=== PATIENT | female | born 1955 | race Caucasian/White ===

== ENCOUNTER 2016-05-22 12:27 | Day surgery (SDC) | payer OTHER ==
[~2016-05-22] VITALS: Ht 152.4 cm; Wt 86.3 kg
[2016-05-22 13:44] VITALS: Ht 152.4 cm; Wt 86.3 kg
[2016-05-22] MEDS ORDERED: METFORMIN (13:56)
[2016-05-22] MEDS ORDERED: LOSARTAN (13:56)
[2016-05-22] MEDS ORDERED: SIMVASTATIN (13:56)
[2016-05-22] MEDS ORDERED: NORCO (13:56)
[2016-05-22] MEDS ORDERED: LANTUS (13:56)
[2016-05-22] MEDS ORDERED: JANUVIA (13:56)
[2016-05-22] MEDS ORDERED: ATIVAN (13:56)
[2016-05-22] MEDS ORDERED: SOMA (13:56)
[2016-05-22] MEDS ORDERED: ASPIRIN PO (13:56)
[2016-05-22] MEDS ORDERED: LATUDA (13:56)
[2016-05-22] MEDS ORDERED: LEVOTHYROXINE (13:56)
[2016-05-22] MEDS ORDERED: TRILEPTAL (13:56)
[2016-05-22 14:28] VITALS: BP 130/67; PULSE 70; RESP 18
[2016-05-22] MEDS ORDERED: PROPOFOL 60 ML ONE (15:32)
[2016-05-22] MEDS ORDERED: LIDOCAINE 2% (SDV) 5 ML INJ ONE (15:32)
[2016-05-22 16:08] VITALS: BP 132/72; PULSE 82; RESP 18
[2016-05-22 16:36] VITALS: BP 125/76; RESP 18
--- NOTE | 2016-05-22 18:36 | GILP ---
DATE OF PROCEDURE: NAME OF PROCEDURES: Colonoscopy and biopsy. SURGEON: Arturo Pak MD PREOPERATIVE DIAGNOSES: 1. Change in bowel habit. 2. Screening colonoscopy. POSTOPERATIVE DIAGNOSES: 1. Colonoscopy all the way to the cecum. 2. One cecal polyp and 2 sigmoid colon polyps were removed using the biopsy forceps. 3. Internal hemorrhoids. INDICATION FOR THE PROCEDURE: Ms. Ludy Burris is a 60-year-old female patient who noticed a change in the bowel habit. She never had screening colonoscopy. The procedure and possible complications were well explained to the patient. She understood and con sented to the procedure. DESCRIPTION OF PROCEDURE: Under the influence of anesthesia, the colonoscope was carefully introduc ed in the rectum, and under direct vision, it was advanced all the way to the cecum. FINDINGS: The patient had 2 sigmoid colon polyps and 1 in the cecum, and they were removed using th e biopsy forceps. She was noted to have internal hemorrhoids. She tolerated the procedure very well. There was no complication from the procedure. At the end of the procedure, she was awake with stable vital signs, and she was discharged home to the care of he r family. IMPRESSION: Please see postoperative diagnoses. PLAN: 1. Await histopathology reports. 2. Next screening colonoscopy in 5 years. Dictated By: ARTURO PIEDRA/EDGAR Conf#: [id number] DID#: [id number]
== END 2016-05-22 16:21 | disposition home or self-care (01) ==
LOC: GIL 12:27
PROVIDERS: ATTEND Internal Medicine Gastroenterology
DX: Z12.11 Encounter for screening for malignant neoplasm of colon (principal); D12.0 Benign neoplasm of cecum; K64.8 Other hemorrhoids; I10 Essential (primary) hypertension; E11.9 Type 2 diabetes mellitus without complications; I25.10 Atherosclerotic heart disease of native coronary artery without angina pectoris; J44.9 Chronic obstructive pulmonary disease, unspecified; E66.01 Morbid (severe) obesity due to excess calories; Z68.37 Body mass index [BMI] 37.0-37.9, adult; Z85.3 Personal history of malignant neoplasm of breast
CPT/HCPCS: 45380; 82962; 88305; Z7610